=== PATIENT | male | born 1960 | race African-American/Black ===

== ENCOUNTER 2020-06-03 21:14 | Emergency (ER) | payer BC, MEDICAID ==
[~2020-06-03] VITALS: Ht 175.3 cm; Wt 90.0 kg
[2020-06-03] MEDS ORDERED: ONDANSETRON HCL 4MG/2ML INJ IV STA (23:27)
[2020-06-03] MEDS ORDERED: MORPHINE SULFATE 4 MG/ML CPJ (NOT FOR IM USE) IV STA (23:27)
[2020-06-03] MEDS ORDERED: SODIUM CHLORIDE 0.9% 1,000 ML IV ONE (23:27)
[2020-06-04 00:51] LABS: BASOPHILS % 0.4 % (0.0-2.0); EOSINOPHILS % 0.8 % (0.0-5.0); HEMATOCRIT. 48.3 % (42.0-52.0); HEMOGLOBIN. 16.3 g/dL (14.0-18.0); LYMPHOCYTES % 22.7 % (20.0-50.0); MEAN CORPUSCULAR HEMOGLOBIN 28.6 pg (28.0-32.0); MEAN CORPUSCULAR VOLUME 84.6 fL (80.0-94.0); MEAN PLATELET VOLUME 7.9 fl (7.4-10.4); MONOCYTES % 8.8 % (2.0-8.0); NEUTROPHILS % 67.3 % (40.0-76.0); PLATELET 223 x1000/uL (130-400); RED BLOOD CELL COUNT 5.71 mill/uL (4.7-6.1); RED CELL DISTRIBUTION WIDTH 14.3 % (11.6-14.6)
[2020-06-04 00:55] LABS: CHLORIDE 110 mEq/L (98-107)
[2020-06-04 01:08] LABS: CLARITY URINE CLEAR (CLEAR); COLOR URINE YELLOW (YELLOW); KETONES URINE NEGATIVE (NEGATIVE); LEUKOCYTE ESTERASE URINE NEGATIVE (NEGATIVE); NITRITE URINE NEGATIVE (NEGATIVE); OCCULT BLOOD URINE NEGATIVE (NEGATIVE); PROTEIN URINE NEGATIVE (NEGATIVE); SPECIFIC GRAVITY URINE 1.013 (1.005-1.030); UROBILINOGEN URINE 0.2 E.U./dL (0.2-1.0)
[2020-06-04] MEDS ORDERED: ONDANSETRON HCL 4MG/2ML INJ IV STA (02:12)
[2020-06-04] MEDS ORDERED: MORPHINE SULFATE 4 MG/ML CPJ (NOT FOR IM USE) IV STA (02:12)
[2020-06-04 08:14] VITALS: BP 132/78
== END 2020-06-04 08:39 | disposition short-term general hospital (02) ==
LOC: ER 21:55
DX: R10.12 Left upper quadrant pain (principal); K56.7 Ileus, unspecified
CPT/HCPCS: 36415; 74176; 80053; 81003; 83690; 84484; 85025; 93005; 96361; 96374; 96375; 96376; 99285; J2270; J2405; J7030

== ENCOUNTER 2021-03-06 21:16 | Emergency (ER) | payer BC, OTHER ==
[~2021-03-06] VITALS: Ht 175.3 cm; Wt 91.0 kg
[2021-03-06 22:05] VITALS: BP 137/94
[2021-03-06] MEDS ORDERED: ONDANSETRON 4MG ODT PO ONE (23:00)
[2021-03-06] MEDS ORDERED: MORPHINE SULFATE 10 MG/ML CPJ IM ONE (23:00)
[2021-03-07] MEDS ORDERED: IBUPROFEN 600MG TABLET PO ONE (01:00)
[2021-03-07] MEDS ORDERED: IBUP-2029 MT (01:22)
== END 2021-03-07 01:33 | disposition home or self-care (01) ==
LOC: EDUNIT# 21:16 → ER 21:16
DX: S09.8XXA Other specified injuries of head, initial encounter (principal); V44.5XXA Car driver injured in collision with heavy transport vehicle or bus in traffic accident, initial encounter; Y93.89 Activity, other specified; Y92.488 Other paved roadways as the place of occurrence of the external cause
CPT/HCPCS: 70450; 96372; 99284; J2270; Q0162